=== PATIENT | female | born 1990 | race Caucasian/White ===

== ENCOUNTER 2023-10-26 00:51 | Observation (INO) | payer BC ==
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
[2023-10-26 01:23] LABS: Basophils # (A) 0.1 k/uL (0-0.2); Basophils % (A) 1 %; Eosinophils # (A) 0.8 k/uL (0-0.7); Eosinophils % (A) 7 %; HCT 45.4 % (34.0-46.0); HGB 14.6 gm/dL (11.4-16.0); Lymphocytes # (A) 2.3 k/uL (1.0-4.8); Lymphocytes % (A) 20 %; MCH 31.7 pg (25.0-35.0); MCHC 32.1 g/dL (31.0-37.0); MCV 98.6 fL (80.0-100.0); Mean Platelet Volume 8.7; Monocytes # (A) 0.4 k/uL (0-1.0); Monocytes % (A) 4 %; Neutrophils # (A) 7.8 k/uL (1.3-7.7); Neutrophils % (A) 67 %; Platelet Count 171 k/uL (150-450); WBC 11.6 k/uL (3.8-10.6)
[2023-10-26 01:43] LABS: ALT 56 U/L (4-34); AST 59 U/L (14-36); Acetaminophen <10.0 ug/mL; African American GFR (CKD) >90 (>60 ml/min/1.73 sqM); Albumin 4.7 g/dL (3.5-5.0); Alkaline Phosphatase 49 U/L (38-126); Anion Gap 12 mmol/L; Blood Urea Nitrogen 13 mg/dL (7-17); Calcium 8.8 mg/dL (8.4-10.2); Carbon Dioxide 21 mmol/L (22-30); Chloride 105 mmol/L (98-107); Glucose 96 mg/dL (74-99); Non-African American GFR(CKD) >90 (>60 ml/min/1.73 sqM); Potassium 3.5 mmol/L (3.5-5.1); Salicylate <1.0 mg/dL; Sodium 138 mmol/L (137-145); Total Bilirubin 0.5 mg/dL (0.2-1.3); Total Protein 7.1 g/dL (6.3-8.2)
[2023-10-26 01:58] LABS: Alcohol 370 mg/dL
[2023-10-26] MEDS ORDERED: NALOXONE 0.4 MG/ML 1 ML VIAL IV PRN (02:11)
[2023-10-26] MEDS ORDERED: ONDANSETRON 4 MG/2 ML VIAL IVP PRN (02:11)
[2023-10-26] MEDS: SODIUM CHLORIDE 0.9% 1,000 ML IV SCH (02:32)
[2023-10-26 02:48] LABS: Amphetamine Screen,Urine Not Detected (NotDetected); Barbiturate Screen,Urine Not Detected (NotDetected); Benzodiazepines Screen,Urine Not Detected (NotDetected); Cocaine Screen,Urine Not Detected (NotDetected); Methadone Screen, Urine Not Detected (NotDetected); Opiate Screen,Urine Not Detected (NotDetected); Oxycodone Screen, Urine Not Detected (NotDetected); Phencyclidine Screen,Urine Not Detected (NotDetected); Tricyclic Antidepressant,Urine Not Detected (NotDetected); Urn Cannabinoid Scrn Detected (NotDetected)
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
[2023-10-26] MEDS: PANTOPRAZOLE 40 MG/10 ML VIAL IV SCH (09:03)
[2023-10-26] MEDS: ESCITALOPRAM 10 MG TAB PO SCH (09:04)
[2023-10-26] MEDS: MULTIVITAMINS, THERA 1 EACH TAB PO SCH (09:04)
[2023-10-26] MEDS: ONDANSETRON 4 MG/2 ML VIAL IVP PRN (13:14)
[2023-10-26] MEDS: LORazepam 1 MG/0.5 ML VIAL IV STA (18:50)
[2023-10-26] MEDS ORDERED: MELATONIN 5 MG TABLET PO PRN (20:13)
[2023-10-26] MEDS: traZODone HCL 100 MG TAB PO SCH (20:25)
[2023-10-26 21:28] VITALS: RESP 16
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
[2023-10-27] MEDS: LORazepam 1 MG/0.5 ML VIAL IV PRN (01:11)
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
[2023-10-27 15:20] VITALS: BP 134/81; PULSE 61; TEMP 97.9
== END 2023-10-27 15:00 ==
LOC: EC 00:51 → SUPCPDRO 00:51 → 6NMEDSUR 02:11
PROVIDERS: ADMIT Family Medicine; ATTEND Family Medicine
DX: F10.229 Alcohol dependence with intoxication, unspecified (principal); F33.2 Major depressive disorder, recurrent severe without psychotic features; R45.851 Suicidal ideations; F41.9 Anxiety disorder, unspecified; Y90.8 Blood alcohol level of 240 mg/100 ml or more; F43.9 Reaction to severe stress, unspecified; F17.290 Nicotine dependence, other tobacco product, uncomplicated; Z79.899 Other long term (current) drug therapy; Z11.52 Encounter for screening for COVID-19; Z63.5 Disruption of family by separation and divorce
CPT/HCPCS: 96376; 96361 ×2; 96374; 96375; 82075; 99285; 36415; 82552; 80053; 84484; 85025; 81025; 82550; 80306; 80143; 80320; 87635; 80179; G0378 ×2; J2060 ×2; J2405; C9113 ×2

== ENCOUNTER 2023-10-27 12:58 | Inpatient (IN) | payer BC ==
[2023-10-27] MEDS ORDERED: MAG HYDROX/AL HYDROX/SIMETH 355 ML BOTTLE PO PRN (12:59)
[2023-10-27] MEDS ORDERED: ACETAMINOPHEN TAB 325 MG TAB PO PRN (12:59)
[2023-10-27] MEDS ORDERED: OLANZapine 10 MG VIAL IM PRN (12:59)
[2023-10-27] MEDS ORDERED: MAGNESIUM HYDROXIDE 2,400 MG/30 ML CUP PO PRN (12:59)
[2023-10-27] MEDS: LORazepam 1 MG TAB PO PRN (18:49)
[2023-10-27] MEDS: traZODone HCL 100 MG TAB PO SCH (21:47)
[2023-10-27] MEDS: MELATONIN 5 MG TABLET PO PRN (21:47)
[2023-10-27] MEDS: OLANZapine 10 MG TAB PO PRN (21:47)
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
[2023-10-28] MEDS ORDERED: NICOTINE 14MG/24HR PATCH TRANSDERM SCH (09:00)
[2023-10-28] MEDS: ESCITALOPRAM 10 MG TAB PO SCH (09:10)
[2023-10-28] MEDS: MULTIVITAMINS, THERA 1 EACH TAB PO SCH (09:10)
[2023-10-28] MEDS: IBUPROFEN 600 MG TAB PO PRN (09:11)
[2023-10-28] MEDS ORDERED: ALBUTEROL HFA INHALER INHALATION PRN (11:33)
[2023-10-28 12:14] LABS: ALT 130 U/L (4-34); AST 107 U/L (14-36); Albumin 4.4 g/dL (3.5-5.0); Alkaline Phosphatase 58 U/L (38-126); Bilirubin, Delta 0.4 mg/dL (0.0-0.2); Bilirubin,Unconjugated 0.9 mg/dL (0.0-1.1); Total Bilirubin 1.3 mg/dL (0.2-1.3); Total Protein 7.2 g/dL (6.3-8.2)
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
[2023-10-28] MEDS: LORazepam 1 MG TAB PO PRN (18:01)
[2023-10-28] MEDS: NICOTINE GUM (POLACRILEX) 2 MG GUM BUCCAL PRN (19:24)
[2023-10-29 06:16] LABS: Chol/HDL Ratio 2.77 Ratio; LDL Cholesterol,Calculated 134.4 mg/dL (0.0-131.0); VLDL Calculation 12.66 mg/dL (5.00-40.00)
[2023-10-29 08:24] VITALS: RESP 18
--- NOTE | 2023-10-29 08:48 | P.PN ---
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 Alcohol use disorder Cannabis use disorder unspecified Patient Name: Amee Monae Date of : 89 Patient Status: Inpatient Attending Provider: Nicanor Hamilton Date: 10/29/23 Initialization Date: 10/28/23 08:32 Subjective data: The patient was seen and chart was reviewed and case discussed with the nursing staff Patient was laying in bed comfortably and sat up and was cooperative during his interview Patient states that she is feeling better/about the same She states that she and her are going through a divorce and still planning to do so She said that she had a visit from her father and her yesterday and that they are working towards finalizing things She states that she will be staying with her father after discharge She also admits that she would get some help for her substance use issues She denies that there is anything left to work on in the relationship and that they have decided more or less to go forward with the divorce Emotionally she states that she is coping better She does admit that she feels somewhat down but denies any suicidal or homicidal ideations or plans Mental status examination: Reveals a young female who currently appears in no acute physical distress Patient was laying in bed and sat up immediately when approached She is alert and oriented to time place and person Thought processes are goal directed sequential and logical Patient however has significant body odor and poor self hygiene Affect at this time appears to be flat Patient denies any auditory or visual hallucinations Patient's formal and operational judgment appears to be fair Patient does seem to have insight Diagnostic impression: Adjustment disorder with mixed emotional features 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 Alcohol use disorder Cannabis use disorder unspecified Plan: The patient will be hospitalized on the unit for further evaluation and treatment Therapy will be focused on providing supportive care and improving her coping abilities with a multimodal treatment Patient was also participating on the schmitz activities individual milieu group OT RT PT and pharmacotherapy Approximate of stay would be 3 to 5 days Treatment will also include family therapy to assess interpersonal family issues and conflicts or any other past history of depression and anxiety the patient may be minimizing Bal Key MD Objective - Vital Signs Vital signs: Vital Signs Temp 97.9 F 06/09/24 08:24 Pulse 115 H 10/29/23 08:24 Resp 18 10/29/23 08:24 BP 122/88 10/29/23 08:24 Pulse Ox 98 10/29/23 08:24 FiO2 - Labs Labs: Abnormal Lab Results - Last 24 Hours (Table) 10/28/23 Range/Units 11:02 Delta Bilirubin 0.4 H (0.0-0.2) mg/dL AST 107 H (14-36) U/L ALT 130 H (4-34) U/L Cholesterol 230.00 H (0.00-200.00) mg/dL LDL Cholesterol, Calc 134.4 H (0.0-131.0) mg/dL HDL Cholesterol 82.90 H (40.00-60.00) mg/dL
[2023-10-30] MEDS: LORazepam 1 MG TAB PO PRN (02:51)
[2023-10-30 05:45] VITALS: TEMP 98.1
[2023-10-30 08:19] VITALS: BP 120/83
[2023-10-30 10:19] VITALS: PULSE 134
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
== END 2023-10-30 13:15 | disposition home or self-care (01) | DRG 882 ==
LOC: 3MHU 15:02
PROVIDERS: ADMIT Psychiatry & Neurology Psychiatry; ATTEND Psychiatry & Neurology Psychiatry
DX: F43.23 Adjustment disorder with mixed anxiety and depressed mood (principal); F17.200 Nicotine dependence, unspecified, uncomplicated; F10.129 Alcohol abuse with intoxication, unspecified; F12.10 Cannabis abuse, uncomplicated; G47.00 Insomnia, unspecified; I10 Essential (primary) hypertension; J45.909 Unspecified asthma, uncomplicated; K59.00 Constipation, unspecified; Z63.5 Disruption of family by separation and divorce; Z79.899 Other long term (current) drug therapy; Z71.6 Tobacco abuse counseling
CPT/HCPCS: 80061; 80076; 83036; 84443

== ENCOUNTER 2023-11-09 17:59 | Inpatient (IN) | payer BC ==
[2023-11-09 19:40] LABS: Basophils # (A) 0.1 k/uL (0-0.2); Basophils % (A) 1 %; Eosinophils # (A) 0.2 k/uL (0-0.7); Eosinophils % (A) 2 %; HCT 47.4 % (34.0-46.0); HGB 14.9 gm/dL (11.4-16.0); Lymphocytes # (A) 1.3 k/uL (1.0-4.8); Lymphocytes % (A) 12 %; MCH 31.5 pg (25.0-35.0); MCHC 31.4 g/dL (31.0-37.0); MCV 100.2 fL (80.0-100.0); Monocytes # (A) 0.4 k/uL (0-1.0); Monocytes % (A) 4 %; Neutrophils # (A) 8.6 k/uL (1.3-7.7); Neutrophils % (A) 80 %; Platelet Count 293 k/uL (150-450); RBC 4.73 m/uL (3.80-5.40); RDW 13.3 % (11.5-15.5); WBC 10.7 k/uL (3.8-10.6)
[2023-11-09 19:51] LABS: Appearance,Urine Cloudy (Clear); Bilirubin,Urine Negative (Negative); Blood,Urine Negative (Negative); Color,Urine Yellow; Glucose,Urine (UA) Negative (Negative); Ketones,Urine 1+ (Negative); Leukocyte Esterase,Urine Negative (Negative); Mucus,Urine Few /hpf; Nitrite,Urine Negative (Negative); Protein,Urine 1+ (Negative); RBC,Urine 1 /hpf (0-5); Specific Gravity,Urine 1.024 (1.001-1.035); Squamous Epithelial Cell,Urine 14 /hpf (0-4); Urobilinogen,Urine <2.0 mg/dL (<2.0); WBC,Urine 1 /hpf (0-5)
[2023-11-09 19:53] LABS: Amphetamine Screen,Urine Not Detected (NotDetected); Barbiturate Screen,Urine Not Detected (NotDetected); Benzodiazepines Screen,Urine Detected (NotDetected); Cocaine Screen,Urine Not Detected (NotDetected); Methadone Screen, Urine Not Detected (NotDetected); Opiate Screen,Urine Not Detected (NotDetected); Oxycodone Screen, Urine Not Detected (NotDetected); Phencyclidine Screen,Urine Not Detected (NotDetected); Tricyclic Antidepressant,Urine Not Detected (NotDetected); Urn Cannabinoid Scrn Detected (NotDetected)
--- NOTE | 2023-11-09 20:54 | ED ---
General Adult HPI - General Source: patient Mode of arrival: EMS Limitations: no limitations <Ursula Carlton - Last Filed: 11/09/23 22:18> <Rj Snyder - Last Filed: 11/09/23 23:22> - General Chief complaint: Overdose Stated complaint: Petition/ATOH Time Seen by Provider: 11/09/23 18:45 - History of Present Illness Initial comments: 33-year-old female who is brought into the emergency department by her on a petition. is concerned about the patient's behavior. He states that she is participating in risky behavior such as driving while intoxicated. She has a self-harm behavior with multiple suicide attempts before in the past. He states that she is an alcoholic and drinks daily. Today he had found the patient possibly drinking isopropyl alcohol. Patient denies drinking it. was also concerned that she may have taken phenobarbital which is prescribed to their dog. Patient also denies this. She has had multiple extramarital affairs. She has been previously hospitalized for mental health however her does not believe that it helped her at all. Patient arrives does admit to drinking earlier. She denies suicidal ideations. Denies current drug use or concern for . No other alleviating, precipitating or modifying factors (Ursula Carlton) - Related Data Home Medications Medication Instructions Recorded Confirmed Escitalopram [Lexapro] 10 mg PO DAILY 10/26/23 11/09/23 Multivitamins, Thera [Multivitamin 1 tab PO DAILY 10/26/23 11/09/23 (formulary)] traZODone HCL [Desyrel] 100 mg PO HS 10/26/23 11/09/23 Previous Rx's Medication Instructions Recorded Melatonin 10 mg PO HS PRN tab 10/27/23 Allergies Allergy/AdvReac Type Severity Reaction Status Date / Time No Known Allergies Allergy Verified 11/09/23 18:23 Review of Systems ROS Other: All systems not noted in ROS Statement are negative. <Ursula Carlton - Last Filed: 11/09/23 22:18> ROS Other: All systems not noted in ROS Statement are negative. <Rj Snyder - Last Filed: 11/09/23 23:22> ROS Statement: Those systems with pertinent positive or pertinent negative responses have been documented in the HPI. Past Medical History Past Medical History: Asthma, Hypertension History of Any Multi-Drug Resistant Organisms: None Reported Past Surgical History: No Surgical Hx Reported Past Anesthesia/Blood Transfusion Reactions: No Reported Reaction Past Psychological History: Anxiety, Depression Smoking Status: Current every day smoker, Vaper Past Alcohol Use History: Occasional Past Drug Use History: Marijuana <Ursula Carlton Lizeth Last Filed: 11/09/23 22:18> General Exam Limitations: no limitations General appearance: alert, in no apparent distress Head exam: Present: atraumatic, normocephalic, normal inspection Eye exam: Present: normal appearance, PERRL, EOMI. Absent: scleral icterus, conjunctival injection, periorbital swelling ENT exam: Present: normal exam, mucous membranes moist Neck exam: Present: normal inspection. Absent: tenderness, meningismus, lymphadenopathy Respiratory exam: Present: normal lung sounds bilaterally. Absent: respiratory distress, wheezes, rales, rhonchi, stridor Cardiovascular Exam: Present: regular rate, normal rhythm, normal heart sounds. Absent: systolic murmur, diastolic murmur, rubs, gallop, clicks GI/Abdominal exam: Present: soft, normal bowel sounds. Absent: distended, tenderness, guarding, rebound, rigid Extremities exam: Present: normal inspection, full ROM, normal capillary refill. Absent: tenderness, pedal edema, joint swelling, calf tenderness Back exam: Present: normal inspection Neurological exam: Present: alert, oriented X3, CN II-XII intact Psychiatric exam: Present: normal affect, normal mood Skin exam: Present: warm, dry, intact, normal color. Absent: rash <Ursula Carlton Lizeth Last Filed: 11/09/23 22:18> Course Vital Signs 11/09/23 11/09/23 11/09/23 18:41 19:23 20:23 Temperature 98.7 F Pulse Rate 78 87 84 Respiratory 16 18 18 Rate Blood Pressure 123/70 119/79 131/84 O2 Sat by Pulse 97 96 95 Oximetry 11/09/23 21:23 Temperature Pulse Rate 66 Respiratory 18 Rate Blood Pressure 124/78 O2 Sat by Pulse 96 Oximetry Medical Decision Making - Lab Data Result diagrams: 11/09/23 19:16 11/09/23 19:16 <Ursula Carlton Lizeth Last Filed: 11/09/23 22:18> - Lab Data Result diagrams: 11/09/23 19:16 11/09/23 19:16 <Brenton Snyderssmaxim Nolan - Last Filed: 11/09/23 23:22> - Medical Decision Making Was pt. sent in by a medical professional or institution (MARISA De La Rosa, CAR DUMPER OPERATOR, urgent care, hospital, or [place] health care facility...) When possible be specific @ -[No] Did you speak to anyone other than the patient for history (EMS, parent, family, police, friend...)? What history was obtained from this source @ -[No] Did you review nursing and triage notes (agree or disagree)? Why? @ -[I reviewed and agree with nursing and triage notes] Were old charts reviewed (outside hosp., previous admission, EMS record, old EKG, old radiological studies, urgent care reports/EKG's, [place] health [facility] facility records)? Report findings @ -[No old charts were reviewed] Differential Diagnosis (chest pain, altered mental status, abdominal pain women, abdominal pain men, vaginal bleeding, weakness, fever, dyspnea, syncope, headache, dizziness, GI bleed, back pain, seizure, CVA, palpatations, mental health, musculoskeletal)? @ -[not applicable] EKG interpreted by me (3pts min.). @ -Yes and demonstrates sinus rhythm with a rate of 90. FL interval 159. QRS 90. QTc of 436. No acute ST segment elevations or depressions X-rays interpreted by me (1pt min.). @ -[None done] CT interpreted by me (1pt min.). @ -[None done] U/S interpreted by me (1pt. min.). @ -[None done] What testing was considered but not performed or refused? (CT, X-rays, U/S, labs)? Why? @ -[None] What meds were considered but not given or refused? Why? @ -[None] Did you discuss the management of the patient with other professionals (professionals i.e. MARISA De La Rosa, CAR DUMPER OPERATOR, lab, RT, psych nurse, social worker assistant, gyro mechanic, teacher, technology officer, case packer and sealer)? Give summary @ -[No] Was smoking cessation discussed for >3mins.? @ -[No] Was critical care preformed (if so, how long)? @ -[No] Were there social determinants of health that impacted care today? How? (Homelessness, low income, unemployed, alcoholism, drug addiction, transportation, low edu. Level, literacy, decrease access to med. care, group home, rehab)? @ -[No] Was there de-escalation of care discussed even if they declined (Discuss DNR or withdrawal of care, Hospice)? DNR status @ -[No] What co-morbidities impacted this encounter? (DM, HTN, Smoking, COPD, CAD, Cancer, CVA, ARF, Chemo, Hep., AIDS, mental health diagnosis, sleep apnea, morbid obesity)? @ -[None] Was patient admitted / discharged? Hospital course, mention meds given and route, prescriptions, significant lab abnormalities, going to OR and other pertinent info. @ -[hospital course] Undiagnosed new problem with uncertain prognosis? @ -[No] Drug Therapy requiring intensive monitoring for toxicity (Heparin, Nitro, Insulin, Cardizem)? @ -[No] Were any procedures done? @ -[No] Diagnosis/symptom? @ -[default] Acute, or Chronic, or Acute on Chronic? @ -[default] Uncomplicated (without systemic symptoms) or Complicated (systemic symptoms)? @ -[default] Side effects of treatment? @ -[No] Exacerbation, Progression, or Severe Exacerbation? @ -[No] Poses a threat to life or bodily function? How? (Chest pain, USA, CT, pneumonia, PE, COPD, DKA, ARF, appy, cholecystitis, CVA, Diverticulitis, Homicidal, Suicidal, threat to staff... and all critical care pts) @ -[No] (Ursula Carlton) Patient evaluated by EPS. Patient will voluntarily sign into inpatient psych. (Rj Snyder) - Lab Data Lab Results 11/09/23 11/09/23 11/09/23 Range/Units 19:16 19:16 19:26 WBC 10.7 H (3.8-10.6) k/uL RBC 4.73 (3.80-5.40) m/uL Hgb 14.9 (11.4-16.0) gm/dL Hct 47.4 H (34.0-46.0) % MCV 100.2 H (80.0-100.0) fL MCH 31.5 (25.0-35.0) pg MCHC 31.4 (31.0-37.0) g/dL RDW 13.3 (11.5-15.5) % Plt Count 293 (150-450) k/uL MPV 8.0 Neutrophils % 80 % Lymphocytes % 12 % Monocytes % 4 % Eosinophils % 2 % Basophils % 1 % Neutrophils # 8.6 H (1.3-7.7) k/uL Lymphocytes # 1.3 (1.0-4.8) k/uL Monocytes # 0.4 (0-1.0) k/uL Eosinophils # 0.2 (0-0.7) k/uL Basophils # 0.1 (0-0.2) k/uL Sodium 140 (137-145) mmol/L Potassium 3.9 (3.5-5.1) mmol/L Chloride 106 (98-107) mmol/L Carbon Dioxide 21 L (22-30) mmol/L Anion Gap 13 mmol/L BUN 11 (7-17) mg/dL Creatinine 0.52 (0.52-1.04) mg/dL Est GFR (CKD-EPI)AfAm >90 (>60 ml/min/1.73 sqM) Est GFR (CKD-EPI)NonAf >90 (>60 ml/min/1.73 sqM) Glucose 77 (74-99) mg/dL Calcium 8.9 (8.4-10.2) mg/dL Total Bilirubin 0.8 (0.2-1.3) mg/dL AST 39 H (14-36) U/L ALT 33 (4-34) U/L Alkaline Phosphatase 62 (38-126) U/L Total Protein 6.9 (6.3-8.2) g/dL Albumin 4.4 (3.5-5.0) g/dL Urine Color Urine Appearance (Clear) Urine pH (5.0-8.0) Ur Specific [place] (1.001-1.035) Urine Protein (Negative) Urine Glucose (UA) (Negative) Urine Ketones (Negative) Urine Blood (Negative) Urine Nitrite (Negative) Urine Bilirubin (Negative) Urine Urobilinogen (<2.0) mg/dL Ur Leukocyte Esterase (Negative) Urine RBC (0-5) /hpf Urine WBC (0-5) /hpf Ur Squamous Epith Cells (0-4) /hpf Urine Mucus (None) /hpf Urine HCG, Qual Not Detected (Not Detectd) Salicylates <1.0 mg/dL Urine Opiates Screen (NotDetected) Ur Oxycodone Screen (NotDetected) Urine Methadone Screen (NotDetected) Acetaminophen <10.0 ug/mL Ur Barbiturates Screen (NotDetected) U Tricyclic Antidepress (NotDetected) Ur Phencyclidine Scrn (NotDetected) Ur Amphetamines Screen (NotDetected) U Methamphetamines Scrn (NotDetected) U Benzodiazepines Scrn (NotDetected) Urine Cocaine Screen (NotDetected) U Marijuana (THC) Screen (NotDetected) Serum Alcohol 116 mg/dL 11/09/23 11/09/23 Range/Units 19:26 19:26 WBC (3.8-10.6) k/uL RBC (3.80-5.40) m/uL Hgb (11.4-16.0) gm/dL Hct (34.0-46.0) % MCV (80.0-100.0) fL MCH (25.0-35.0) pg MCHC (31.0-37.0) g/dL RDW (11.5-15.5) % Plt Count (150-450) k/uL MPV Neutrophils % % Lymphocytes % % Monocytes % % Eosinophils % % Basophils % % Neutrophils # (1.3-7.7) k/uL Lymphocytes # (1.0-4.8) k/uL Monocytes # (0-1.0) k/uL Eosinophils # (0-0.7) k/uL Basophils # (0-0.2) k/uL Sodium (137-145) mmol/L Potassium (3.5-5.1) mmol/L Chloride (98-107) mmol/L Carbon Dioxide (22-30) mmol/L Anion Gap mmol/L BUN (7-17) mg/dL Creatinine (0.52-1.04) mg/dL Est GFR (CKD-EPI)AfAm (>60 ml/min/1.73 sqM) Est GFR (CKD-EPI)NonAf (>60 ml/min/1.73 sqM) Glucose (74-99) mg/dL Calcium (8.4-10.2) mg/dL Total Bilirubin (0.2-1.3) mg/dL AST (14-36) U/L ALT (4-34) U/L Alkaline Phosphatase (38-126) U/L Total Protein (6.3-8.2) g/dL Albumin (3.5-5.0) g/dL Urine Color Yellow Urine Appearance Cloudy H (Clear) Urine pH 7.0 (5.0-8.0) Ur Specific [place] 1.024 (1.001-1.035) Urine Protein 1+ H (Negative) Urine Glucose (UA) Negative (Negative) Urine Ketones 1+ H (Negative) Urine Blood Negative (Negative) Urine Nitrite Negative (Negative) Urine Bilirubin Negative (Negative) Urine Urobilinogen <2.0 (<2.0) mg/dL Ur Leukocyte Esterase Negative (Negative) Urine RBC 1 (0-5) /hpf Urine WBC 1 (0-5) /hpf Ur Squamous Epith Cells 14 H (0-4) /hpf Urine Mucus Few H (None) /hpf Urine HCG, Qual (Not Detectd) Salicylates mg/dL Urine Opiates Screen Not Detected (NotDetected) Ur Oxycodone Screen Not Detected (NotDetected) Urine Methadone Screen Not Detected (NotDetected) Acetaminophen ug/mL Ur Barbiturates Screen Not Detected (NotDetected) U Tricyclic Antidepress Not Detected (NotDetected) Ur Phencyclidine Scrn Not Detected (NotDetected) Ur Amphetamines Screen Not Detected (NotDetected) U Methamphetamines Scrn Not Detected (NotDetected) U Benzodiazepines Scrn Detected H (NotDetected) Urine Cocaine Screen Not Detected (NotDetected) U Marijuana (THC) Screen Detected H (NotDetected) Serum Alcohol mg/dL Disposition <Ursula Carlton - Last Filed: 11/09/23 22:18> Decision Time: 23:22 <Rj Snyder - Last Filed: 11/09/23 23:22> Clinical Impression: Suicidal behavior Disposition: ADMITTED IP TO THIS [facility] Condition: Fair Referrals: Ahmet Real MD [Primary Care Provider] - 1-2 days
[2023-11-09 21:16] LABS: ALT 33 U/L (4-34); AST 39 U/L (14-36); Acetaminophen <10.0 ug/mL; African American GFR (CKD) >90 (>60 ml/min/1.73 sqM); Albumin 4.4 g/dL (3.5-5.0); Alkaline Phosphatase 62 U/L (38-126); Anion Gap 13 mmol/L; Blood Urea Nitrogen 11 mg/dL (7-17); Calcium 8.9 mg/dL (8.4-10.2); Carbon Dioxide 21 mmol/L (22-30); Chloride 106 mmol/L (98-107); Glucose 77 mg/dL (74-99); Non-African American GFR(CKD) >90 (>60 ml/min/1.73 sqM); Potassium 3.9 mmol/L (3.5-5.1); Salicylate <1.0 mg/dL; Sodium 140 mmol/L (137-145); Total Bilirubin 0.8 mg/dL (0.2-1.3); Total Protein 6.9 g/dL (6.3-8.2)
[2023-11-09 21:20] LABS: Alcohol 116 mg/dL
[2023-11-10] MEDS: LORazepam 1 MG TAB PO STA (00:32)
[2023-11-10] MEDS ORDERED: HALOPERIDOL LACTATE 5 MG/ML 1 ML VIAL IM PRN (00:33)
[2023-11-10] MEDS: ONDANSETRON ODT 4 MG TAB PO STA (00:33)
[2023-11-10] MEDS ORDERED: ACETAMINOPHEN TAB 325 MG TAB PO PRN (00:33)
[2023-11-10 01:06] LABS: Glucose,Whole Blood 96 mg/dL (70-110)
[2023-11-10] MEDS ORDERED: traZODone HCL 100 MG TAB ONE (01:09)
[2023-11-10] MEDS: chlordiazePOXIDE 25 MG CAP PO SCH (01:10)
[2023-11-10] MEDS: traZODone HCL 50 MG TAB PO SCH ×2 (01:14→20:13)
[2023-11-10] MEDS: MELATONIN 5 MG TABLET PO PRN (01:14)
[2023-11-10] MEDS: LORazepam 1 MG TAB PO PRN ×2 (06:25→09:35)
[2023-11-10] MEDS ORDERED: MAG HYDROX/AL HYDROX/SIMETH 355 ML BOTTLE PO PRN (08:00)
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
[2023-11-10] MEDS ORDERED: MAGNESIUM HYDROXIDE 2,400 MG/30 ML CUP PO PRN (09:00)
[2023-11-10] MEDS: MULTIVITAMINS, THERA 1 EACH TAB PO SCH (09:36)
[2023-11-10] MEDS: THIAMINE 100 MG TAB PO SCH (09:36)
[2023-11-10] MEDS: FOLIC ACID 1 MG TAB PO SCH (09:36)
[2023-11-10] MEDS: ESCITALOPRAM 10 MG TAB PO SCH (09:36)
[2023-11-10] MEDS: NICOTINE 14MG/24HR PATCH TRANSDERM SCH (09:36)
[2023-11-10 10:51] LABS: ALT 34 U/L (4-34); AST 39 U/L (14-36); Albumin 4.4 g/dL (3.5-5.0); Alkaline Phosphatase 58 U/L (38-126); Bilirubin, Delta 0.3 mg/dL (0.0-0.2); Bilirubin,Unconjugated 1.5 mg/dL (0.0-1.1); Total Bilirubin 1.8 mg/dL (0.2-1.3)
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
[2023-11-10 15:51] LABS: Chol/HDL Ratio 1.76 Ratio; LDL Cholesterol,Calculated 81.5 mg/dL (0.0-131.0)
[2023-11-10] MEDS: ONDANSETRON 4 MG TAB PO PRN (20:13)
[2023-11-11 10:20] LABS: ALT 43 U/L (4-34); AST 52 U/L (14-36); African American GFR (CKD) >90 (>60 ml/min/1.73 sqM); Albumin 4.5 g/dL (3.5-5.0); Alkaline Phosphatase 61 U/L (38-126); Anion Gap 8 mmol/L; Blood Urea Nitrogen 15 mg/dL (7-17); Carbon Dioxide 26 mmol/L (22-30); Chloride 101 mmol/L (98-107); Glucose 89 mg/dL (74-99); Non-African American GFR(CKD) >90 (>60 ml/min/1.73 sqM); Sodium 135 mmol/L (137-145); Total Bilirubin 2.2 mg/dL (0.2-1.3); Total Protein 7.2 g/dL (6.3-8.2)
[2023-11-11 13:26] VITALS: RESP 16
--- NOTE | 2023-11-11 13:55 | US ---
EXAMINATION TYPE: US abdomen limited DATE OF EXAM: 11/11/2023 COMPARISON: CT abdomen 02/22/2014 CLINICAL INDICATION: Female, 33 years old with history of elevated liver enzymes; elevated liver enzy mes. Nausea/vomiting TECHNIQUE: Multiple sonographic images of the right upper quadrant are obtained. FINDINGS: EXAM MEASUREMENTS: Liver Length: 16.6 cm Gallbladder Wall: 0.3 cm CBD: 0.5 cm Right Kidney: 11.3 x 4.0 x 4.7 cm Pancreas: appears wnl Liver: attenuating, heterogeneous. subtle hypoechoic area left lobe = 1.3 x 0.8 x 1.2cm this is n ot evident on the comparison CT of 2013 Gallbladder: no evidence of stones Evidence for sonographic Luque's sign: no CBD: wnl Right Kidney: no evidence of hydronephrosis IMPRESSION: 1. Very subtle finding and the tip of the right lobe liver. This is Nonspecific. Consider follow-up C T abdomen with contrast.
[2023-11-11] MEDS: IBUPROFEN 600 MG TAB PO PRN (15:57)
--- NOTE | 2023-11-11 17:24 | P.PN ---
Progress Note - Text Progress Note Date: 11/11/23 Interval History: Patient was seen bedside this afternoon. She reports having significant withdrawal symptoms and has been given scheduled Librium and Ativan 2 mg today. she also reported nausea and was given Zofran alert today. She was seen to be resting in feeling somewhat better this afternoon. However, she continues to lack any appetite due to symptoms of withdrawal. Patient was not tremulous on exam and said that she was not feeling any symptoms of withdrawal currently. She was encouraged to request for Ativan should she experience any symptoms of withdrawal. Patient reports having trouble sleeping and requests to be on melatonin. She was also informed that we can add scheduled Ativan to improve withdrawal symptoms as well and patient was agreeable with this. She is aware that these medications are as needed and will not be continued long-term. She r eports poor mood and poor energy levels at this time. At this time patient denies any suicidal or homicidal ideations, intent or plan. Patient denies any auditory, visual hallucinations and denies any paranoia or delusions. Patient denies any side effects from the medications and has been compliant with meds. Vital Signs Temp 97.4 F L 11/11/23 13:25 Pulse 88 11/11/23 13:25 Resp 16 11/11/23 13:25 BP 124/88 11/11/23 13:25 Pulse Ox 96 11/11/23 08:23 FiO2 Intake & Output 11/10/23 11/11/23 11/11/23 18:59 06:59 18:59 Intake Total 0 Output Total 1000 Balance -1000 Weight 65.544 kg Intake: Oral 0 Output: Emesis 1000 Mental Status Exam: Alert and attentive Orientation X3. Pleasant and cooperative. Psychomotor activity: No tremors or tics Speech: Normal tone, quality, and quantity Mood: Depressed and anxious. Affect: Appropriate. SI or HI: None Thought content: No concerns Thought process: Linear Perceptual disturbance: No AVH Cognition: Intact Judgement and Insight: Poor Assessment Major depressive disorder, recurrent, severe Alcohol use disorder, currently in withdrawal Plan: -Patient continues to meet criteria for inpatient psychiatric admission for symptom stabilization and safety. -Medications: Librium 25 mg 3 times a day, trazodone 50 mg at bedtime for sleep Continue [facility] protocol for alcohol withdrawal. Vitamin replacement. VSS Add melatonin for sleep Start Ativan 0.5 mg twice a day to help with withdrawal. Plan to taper once withdrawal symptoms improve -When necessary Ativan and Haldol for agitation/aggression. -NRT - [nicotine patch] -SW on board for discharge planning. Encouraged the patient to participate in milieu.
[2023-11-11] MEDS: LORazepam 0.5 MG TAB PO SCH (21:40)
[2023-11-11] MEDS: MELATONIN 5 MG TABLET PO SCH (21:40)
[2023-11-11] MEDS: haloperidoL 5 MG TAB PO PRN (21:41)
--- NOTE | 2023-11-12 16:21 | P.PN ---
Progress Note - Text Progress Note Date: 11/12/23 Interval History: Patient was seen in the interview room today and was agreeable with this. She states that she vomited after lunch this afternoon. She endorses having nausea at home and has been taking Zofran as needed. She was agreeable with being started on Protonix to prevent nausea. Patient states that she generally becomes more nauseous when she is feeling panicked. She endorses continuing to have anxiety and worrying about "everything ". She states that she is concerned about "everything going wrong "in her life. She says she spoke with her who has been supportive. Prior to admission, she reports having forgotten to take Lexapro for a couple of days but says that it was quite helpful for her mood. She is agreeable with being restarted back on this. She also states that trazodone 100 mg was more helpful for her and was interested in dosage increase. Discussed the impact of alcohol on mental health, physical health, and sleep. Also discussed behavioral activation and do not lay down in bed during the daytime as it is likely to worsen sleep hygiene. Encouraged patient to discover triggers as well as goal for alcohol use disorder. Did motivational interviewing. Patient reports poor energy and has a negative outlook on her life currently. Also discussed square breathing and meditation strategies to improve feeling of panic. At this time patient denies any suicidal or homicidal ideations, intent or plan. Patient denies any auditory, visual hallucinations and denies any paranoia or delusions. Patient denies any side effects from the medications and has been compliant with meds. Vital Signs Temp 97.4 F L 11/11/23 13:25 Pulse 112 H 11/12/23 09:33 Resp 16 11/11/23 13:25 BP 107/77 11/12/23 09:33 Pulse Ox 96 11/11/23 08:23 FiO2 Intake & Output 11/11/23 11/12/23 11/12/23 18:59 06:59 18:59 Weight 65.4 kg Mental Status Exam: Alert and attentive Orientation X3. Pleasant and cooperative. Psychomotor activity: No tremors or tics. Slightly restless Speech: Normal tone, quality, and quantity Mood: Depressed and anxious. 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 -Medications: Librium 25 mg 3 times a day, increase trazodone to 100 mg at bedtime for sleep Continue CIWA protocol for alcohol withdrawal. Vitamin replacement. VSS Continue melatonin for sleep Continue Ativan 0.5 mg twice a day to help with withdrawal. Plan to taper once withdrawal symptoms improve Start Lexapro 10 mg daily for mood and anxiety Start Ensure and Protonix -When necessary Ativan and Haldol for agitation/aggression. -NRT - [nicotine patch] -SW on board for discharge planning. Encouraged the patient to participate in milieu.
[2023-11-12] MEDS: ESCITALOPRAM 10 MG TAB PO SCH (16:29)
[2023-11-12] MEDS: PANTOPRAZOLE 40 MG TABLET PO SCH (17:25)
[2023-11-12] MEDS: traZODone HCL 100 MG TAB PO SCH (22:04)
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
[2023-11-13] MEDS: chlordiazePOXIDE 25 MG CAP PO SCH (23:00)
[2023-11-14] MEDS: ESCITALOPRAM 20 MG TAB PO SCH (09:02)
--- NOTE | 2023-11-14 15:18 | P.PN ---
Progress Note - Text Progress Note Date: 11/14/23 Follow-up Mediation Review Chief Complaint: I am anxious Subjective: The patient that has been experiencing symptoms of anxiety, depression, tiredness, feeling of guilt, self-doubt, lost of interest, social withdrawal, pessimism, resentment. and uncertainty. She is going to a drug rehab. arranged by her . She waiting to hear from them. The patient noted that she would go to [facility] if that comes earlier. She requested put her application for this program. The social service worker is working on it. The patient noted she and her have two story house. She lives in one he lives in other one. The patient noted that she has a 5-bedroom house. She also owns [address] land. She noted that she had a nice life with her but losing all due to her drinking. her. She denied any side effects from medications. The patient has not been attending the groups. The interaction with staff and peers is limited. The patient is compliant with treatment recommendations. Leading questions: The patient admitted to Depression and Anxiety. Denied SI or HI. Denied symptoms consistent with psychosis Sleep and Appetite: Fair. Change in family/ living/job/financial/daily routine: The patient not that she would go back her house after discharge. Change in medical condition: No change. Change in medications: Lexapro increased to 20 mg daily. Side effects from Medications: None. Objective- MSE: Alert and attentive. Orientation times three. Dressed and Groomed: Appropriately. Pleasant and cooperative. Psychomotor Activity: Normal. Speech: Normal in tone, quality, and quantity. Mood: Depressed and anxious. Affect: Consistent with mood. SI or HI: None. Perceptual disturbance: None. Thought Content: No paranoia or other delusional thinking noted. Thought Process: Normal. Cognition: Intact Judgment and Insight: Poor. AIMS: Normal. Labs: Available labs reviewed. Diagnosis: No Change. Plan and Recommendations: Continue current Medications. Add Buspar 5 mg po tid. Monitor MS and side effects of medications and adjust medications accordingly. Provide supportive psychotherapy. The patient provided psychoeducation and advised The patient provided Substance abuse counseling. Smoke cessation therapy. The patient to attend [facility] activities. Medication Consent with explanation of risk/benefits and side effects: Explained and obtained
[2023-11-14] MEDS: traZODone HCL 50 MG TAB PO SCH (23:16)
[2023-11-15 06:57] VITALS: BP 102/65; PULSE 58; TEMP 98.3
[2023-11-15 13:38] VITALS: BMI 23.2
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
== END 2023-11-15 15:01 | disposition home or self-care (01) | DRG 885 ==
LOC: EC 17:59 → 3MHU 11-10 00:19
PROVIDERS: ADMIT Psychiatry & Neurology Psychiatry; ATTEND Psychiatry & Neurology Psychiatry
DX: F33.2 Major depressive disorder, recurrent severe without psychotic features (principal); F10.280 Alcohol dependence with alcohol-induced anxiety disorder; R45.851 Suicidal ideations; F10.229 Alcohol dependence with intoxication, unspecified; I10 Essential (primary) hypertension; J45.909 Unspecified asthma, uncomplicated; Z11.52 Encounter for screening for COVID-19; Y90.5 Blood alcohol level of 100-119 mg/100 ml; F43.29 Adjustment disorder with other symptoms; F17.290 Nicotine dependence, other tobacco product, uncomplicated; Z71.6 Tobacco abuse counseling; Z79.899 Other long term (current) drug therapy; Z91.51 Personal history of suicidal behavior; Z59.819 Housing instability, housed unspecified; Z71.41 Alcohol abuse counseling and surveillance of alcoholic
CPT/HCPCS: 36415; 76705; 80053; 80061; 80076; 80143; 80179; 80184; 80306; 80320; 81001; 81025; 82075; 83036; 84443; 85025; 87636; 93005; 99285